=== PATIENT | female | born 1960 | race Caucasian/White ===

== ENCOUNTER 2018-03-05 16:01 | Inpatient (IN) | payer SELFPAY ==
[~2018-03-05] VITALS: Ht 167.6 cm; Wt 140.4 kg
[2018-03-05] MEDS ORDERED: SODIUM CHLORIDE 0.9% 1,000 ML IV ONE ×2 (16:05)
[2018-03-05] MEDS ORDERED: ACETAMINOPHEN 325 MG TAB PO ONE (16:45)
[2018-03-05 17:32] LABS: Basophils # (auto) 0 uL; Basophils % (auto) 0.4 % (0.0-2.0); Eosinophils # (auto) 0 uL; Eosinophils % (auto) 0.4 % (0.0-7.0); Hematocrit 28.1 % (36.0-46.0); Hemoglobin 9.5 g/dL (12.2-16.2); Lymphocytes # (auto) 1.3 uL; Mean Corpuscular Hemoglobin 32.8 pg (28.0-32.0); Mean Corpuscular Volume 96.7 fL (80.0-100.0); Monocytes # (auto) 0.9 uL; Monocytes % (auto) 10.3 % (0.0-12.0); Neutrophils # (auto) 6.2 uL; Neutrophils % (auto) 73.9 % (37.0-80.0); Platelet Count (auto) 165 10^3/uL (140-450); Red Cell Distribution Width 16.2 % (11.8-14.3); White Blood Cell 8.4 10^3/uL (4.4-10.8)
[2018-03-05] MEDS ORDERED: PIPERACILLIN-TAZOB 3.375GM 100 ML IV ONE (17:45)
[2018-03-05 17:49] LABS: Albumin 3.2 g/dL (3.4-5.0); Calcium 6.5 mg/dL (8.5-10.1); INR 1.06 (0.9-1.15); Partial Thromboplastin Time 25.2 sec (23.78-33.04); Potassium 4.9 mmol/L (3.5-5.1); Prothrombin Time 11.3 sec (9.27-12.13)
[2018-03-05 17:58] LABS: BUN/Creatinine Ratio 6.4; Bilirubin, Total 0.5 mg/dL (0.2-1.0); Total Protein 7.3 g/dL (6.4-8.2)
[2018-03-05 18:59] LABS: Urine Bacteria NONE SEEN /hpf (None Seen); Urine Blood 1+ /uL (Negative); Urine Budding Yeast MODERATE /hpf (None Seen); Urine WBC 97 /hpf (0 - 5); Urine WBC Clumps PRESENT /hpf (None Seen)
[2018-03-06] MEDS ORDERED: DEXTROSE (50%) 50ML SYRG IV PRN (00:30)
[2018-03-06] MEDS ORDERED: MORPHINE SULFATE 4 MG/ML SYR/VIAL IV PRN (00:30)
[2018-03-06] MEDS ORDERED: VANCOMYCIN PER PHARMACY 0 MG IV SCH (01:00)
[2018-03-06] MEDS ORDERED: VANCOMYCIN 1,500 MG in D5W 5% 250 ML IV ONE (01:30)
[2018-03-06 02:00] VITALS: BP 148/80
[2018-03-06] MEDS ORDERED: ASPI-231 PO (03:16)
[2018-03-06] MEDS ORDERED: ACET-1156 PO (03:16)
[2018-03-06] MEDS ORDERED: INSLANTI SC (03:16)
[2018-03-06] MEDS ORDERED: VANCOMYCIN 1GM/250ML 500 ML IV ONE (03:34)
[2018-03-06] MEDS: MORPHINE SULFATE 4 MG/ML SYR/VIAL IV PRN ×2 (03:52→10:23)
[2018-03-06] MEDS: ONDANSETRON HCL 4 MG/2 ML VIAL IV PRN ×2 (03:53→10:23)
[2018-03-06 05:00] VITALS: BP 109/62
[2018-03-06] MEDS: InsuLIN REG 1unit/0.01ml Soln (100units/ml) SC SCH ×4 (06:00→21:22)
[2018-03-06] MEDS: ACCU-CHEK COMFORT CURVE STRIP VI SCH ×4 (06:00→21:20)
[2018-03-06 08:00] VITALS: BP 134/77
[2018-03-06] MEDS ORDERED: cefTRIAXone 1GM/50ML D5W 50 ML IV SCH (09:00)
[2018-03-06 09:26] VITALS: BP 134/77
[2018-03-06] MEDS: DILTIAZEM HCL 180MG ER CAP PO SCH (10:22)
[2018-03-06] MEDS: GABAPENTIN 300 MG CAP PO SCH (10:22)
[2018-03-06] MEDS: CIPROFLOXACIN HCL 500 MG TAB PO SCH (11:48)
[2018-03-06] MEDS: metroNIDAZOLE 500 MG TAB PO SCH ×2 (14:40→21:19)
[2018-03-06 17:55] VITALS: BP 114/70
[2018-03-06] MEDS: ACETAMINOPHEN 500 MG TAB PO PRN (18:31)
[2018-03-06] MEDS: ATORVASTATIN 20 MG TAB PO SCH (21:18)
[2018-03-06] MEDS: LINEZOLID 600MG TABLET PO SCH (21:18)
[2018-03-06] MEDS: DOCUSATE SOD 100 MG CAP PO PRN (21:18)
[2018-03-06] MEDS: HYDROcodone-ACET 5/325MG TAB PO PRN (21:19)
[2018-03-06] MEDS: METHOCARBAMOL 500 MG TAB PO PRN (21:19)
[2018-03-06] MEDS: DAKINS HALF STR 0.25% (NaHypochlorite) 473 ML TOPICAL SOL TOP SCH (21:23)
[2018-03-06] MEDS: HEPARIN SODIUM (PORCINE) 5000 UNITS/ML 1ML VIAL SC SCH (21:23)
[2018-03-06 21:38] VITALS: BP 138/60
[2018-03-06] MEDS ORDERED: CIPROFLOXACIN HCL 500 MG TAB PO SCH (22:00)
[2018-03-07 05:30] VITALS: BP 129/78
[2018-03-07] MEDS: ACCU-CHEK COMFORT CURVE STRIP VI SCH ×4 (05:48→22:03)
[2018-03-07] MEDS: InsuLIN REG 1unit/0.01ml Soln (100units/ml) SC SCH ×4 (05:48→22:01)
[2018-03-07] MEDS: metroNIDAZOLE 500 MG TAB PO SCH ×3 (05:48→21:58)
[2018-03-07] MEDS: HEPARIN SODIUM (PORCINE) 5000 UNITS/ML 1ML VIAL SC SCH ×3 (06:01→22:00)
[2018-03-07] MEDS: HYDROcodone-ACET 5/325MG TAB PO PRN (07:50)
[2018-03-07] MEDS: MEPERIDINE HCL (50 MG/ML) 1 ML VIAL IV PRN ×4 (08:06→18:50)
[2018-03-07 09:00] VITALS: BP 106/94
[2018-03-07] MEDS ORDERED: HYDROcodone-ACET 10/325MG TAB PO ONE (09:00)
[2018-03-07] MEDS ORDERED: HYDROcodone-ACET 10/325MG TAB PO PRN (09:00)
[2018-03-07] MEDS ORDERED: MEPERIDINE HCL (50 MG/ML) 1 ML VIAL IM ONE (10:00)
[2018-03-07] MEDS: DILTIAZEM HCL 180MG ER CAP PO SCH (10:00)
[2018-03-07] MEDS: DAKINS HALF STR 0.25% (NaHypochlorite) 473 ML TOPICAL SOL TOP SCH ×2 (10:00→22:02)
[2018-03-07] MEDS: GABAPENTIN 300 MG CAP PO SCH (10:36)
[2018-03-07] MEDS: LINEZOLID 600MG TABLET PO SCH ×2 (10:36→22:12)
[2018-03-07] MEDS: CIPROFLOXACIN HCL 500 MG TAB PO SCH (10:36)
[2018-03-07 17:00] VITALS: BP 115/62
[2018-03-07] MEDS: METHOCARBAMOL 500 MG TAB PO PRN (17:48)
[2018-03-07] MEDS: ATORVASTATIN 20 MG TAB PO SCH (21:58)
[2018-03-07 22:00] VITALS: BP 120/58
[2018-03-07] MEDS: ACETAMINOPHEN 500 MG TAB PO PRN (22:35)
[2018-03-08 05:00] VITALS: BP 137/82
[2018-03-08] MEDS: HEPARIN SODIUM (PORCINE) 5000 UNITS/ML 1ML VIAL SC SCH ×3 (06:01→22:13)
[2018-03-08] MEDS: metroNIDAZOLE 500 MG TAB PO SCH ×3 (06:01→22:13)
[2018-03-08] MEDS: InsuLIN REG 1unit/0.01ml Soln (100units/ml) SC SCH ×4 (06:02→22:52)
[2018-03-08] MEDS: ACCU-CHEK COMFORT CURVE STRIP VI SCH ×4 (06:02→22:14)
[2018-03-08 06:20] LABS: Basophils # (auto) 0 uL; Basophils % (auto) 0.6 % (0.0-2.0); Eosinophils # (auto) 0 uL; Eosinophils % (auto) 0.6 % (0.0-7.0); Hematocrit 26.8 % (36.0-46.0); Hemoglobin 9.1 g/dL (12.2-16.2); Lymphocytes # (auto) 0.6 uL; Lymphocytes % (auto) 10.3 % (10.0-50.0); Mean Corpuscular Hemoglobin 32.8 pg (28.0-32.0); Mean Corpuscular Hgb Conc. 33.9 g/dL (32.0-36.0); Mean Corpuscular Volume 96.8 fL (80.0-100.0); Monocytes # (auto) 0.5 uL; Monocytes % (auto) 7.5 % (0.0-12.0); Neutrophils # (auto) 5.1 uL; Nucleated Red Blood Cells % 0.2 %; Platelet Count (auto) 245 10^3/uL (140-450); Red Blood Cells 2.77 10^6/uL (4.0-5.20); Red Cell Distribution Width 16.2 % (11.8-14.3); White Blood Cell 6.3 10^3/uL (4.4-10.8)
[2018-03-08] MEDS: DOCUSATE SOD 100 MG CAP PO PRN ×2 (06:31→16:21)
[2018-03-08 06:42] LABS: Calcium 6.7 mg/dL (8.5-10.1); Potassium 3.9 mmol/L (3.5-5.1)
[2018-03-08 06:47] LABS: BUN/Creatinine Ratio 5.1; Bilirubin, Total 0.6 mg/dL (0.2-1.0); Total Protein 7.5 g/dL (6.4-8.2)
[2018-03-08 09:00] VITALS: BP 113/71
[2018-03-08] MEDS: DILTIAZEM HCL 180MG ER CAP PO SCH (10:25)
[2018-03-08] MEDS: GABAPENTIN 300 MG CAP PO SCH (10:25)
[2018-03-08] MEDS: CIPROFLOXACIN HCL 500 MG TAB PO SCH (10:25)
[2018-03-08] MEDS: DAKINS HALF STR 0.25% (NaHypochlorite) 473 ML TOPICAL SOL TOP SCH ×2 (10:26→22:14)
[2018-03-08] MEDS: LINEZOLID 600MG TABLET PO SCH ×2 (10:26→22:13)
[2018-03-08] MEDS ORDERED: FUROSEMIDE 40 MG/4 ML VIAL IV ONE (11:30)
[2018-03-08 12:00] VITALS: BP 108/56
[2018-03-08] MEDS ORDERED: HEPARIN SODIUM (PORCINE) 5000 UNITS/ML 1ML VIAL ONE (14:40)
[2018-03-08 17:00] VITALS: BP 108/61
[2018-03-08] MEDS: FUROSEMIDE 40 MG/4 ML VIAL IV SCH (18:00)
[2018-03-08 21:00] VITALS: BP 98/60
[2018-03-08] MEDS: ATORVASTATIN 20 MG TAB PO SCH (22:13)
[2018-03-09 05:00] VITALS: BP 113/56
[2018-03-09] MEDS: HEPARIN SODIUM (PORCINE) 5000 UNITS/ML 1ML VIAL SC SCH ×2 (06:20→15:58)
[2018-03-09 06:26] LABS: Basophils # (auto) 0 uL; Eosinophils # (auto) 0.1 uL; Hemoglobin 8.4 g/dL (12.2-16.2); Mean Corpuscular Volume 96.4 fL (80.0-100.0); Monocytes # (auto) 0.8 uL; Neutrophils # (auto) 4.2 uL; Nucleated Red Blood Cells % 0.1 %
[2018-03-09 06:29] LABS: Basophils % (auto) 0.6 % (0.0-2.0); Eosinophils % (auto) 1.3 % (0.0-7.0); Hematocrit 24.9 % (36.0-46.0); Lymphocytes # (auto) 0.9 uL; Lymphocytes % (auto) 14.8 % (10.0-50.0); Mean Corpuscular Hemoglobin 32.6 pg (28.0-32.0); Mean Corpuscular Hgb Conc. 33.9 g/dL (32.0-36.0); Neutrophils % (auto) 70.3 % (37.0-80.0); Platelet Count (auto) 253 10^3/uL (140-450); Red Blood Cells 2.58 10^6/uL (4.0-5.20); Red Cell Distribution Width 16.2 % (11.8-14.3)
[2018-03-09] MEDS: FUROSEMIDE 40 MG/4 ML VIAL IV SCH ×2 (06:42→18:00)
[2018-03-09] MEDS: metroNIDAZOLE 500 MG TAB PO SCH (06:42)
[2018-03-09] MEDS: ACCU-CHEK COMFORT CURVE STRIP VI SCH ×3 (06:42→17:00)
[2018-03-09] MEDS: InsuLIN REG 1unit/0.01ml Soln (100units/ml) SC SCH ×3 (06:43→17:30)
[2018-03-09 06:50] LABS: BUN/Creatinine Ratio 5.1; Calcium 6.3 mg/dL (8.5-10.1)
[2018-03-09 09:00] VITALS: BP 128/67
[2018-03-09] MEDS: DAKINS HALF STR 0.25% (NaHypochlorite) 473 ML TOPICAL SOL TOP SCH (10:00)
[2018-03-09] MEDS: CIPROFLOXACIN HCL 500 MG TAB PO SCH (10:36)
[2018-03-09] MEDS: DILTIAZEM HCL 180MG ER CAP PO SCH (10:36)
[2018-03-09] MEDS: GABAPENTIN 300 MG CAP PO SCH (10:37)
[2018-03-09] MEDS: LINEZOLID 600MG TABLET PO SCH (10:37)
[2018-03-09 13:00] VITALS: BP 130/65
[2018-03-09] MEDS ORDERED: VANCOMYCIN PER PHARMACY 0 MG IV SCH ×2 (15:45)
[2018-03-09] MEDS ORDERED: VANCOMYCIN 1,250 MG in SODIUM CHL 0.9% 250 ML IV ONE (16:00)
[2018-03-09 16:58] VITALS: BP 101/47
[2018-03-09 19:21] VITALS: BP 101/47
[2018-03-09] MEDS ORDERED: CLINDAMYCIN HCL 150 MG CAP PO SCH ×2 (22:00)
== END 2018-03-09 21:30 | DRG 871 ==
LOC: ER 16:01 → TELE 03-06 00:20 → TELE-CENTR 03-06 02:00
PROVIDERS: ADMIT Nurse Practitioner Family; ATTEND Family Medicine
PROC: 5A1D70Z Performance of Urinary Filtration, Intermittent, Less than 6 Hours Per Day (ICD-10-PCS; principal; 2018-03-07)
DX: A41.9 Sepsis, unspecified organism (principal); G92 Toxic encephalopathy; I50.43 Acute on chronic combined systolic (congestive) and diastolic (congestive) heart failure; N18.6 End stage renal disease; E44.1 Mild protein-calorie malnutrition; Z68.43 Body mass index [BMI] 50.0-59.9, adult; I13.2 Hypertensive heart and chronic kidney disease with heart failure and with stage 5 chronic kidney disease, or end stage renal disease; L97.329 Non-pressure chronic ulcer of left ankle with unspecified severity; N30.00 Acute cystitis without hematuria; D64.9 Anemia, unspecified; E11.21 Type 2 diabetes mellitus with diabetic nephropathy; E11.22 Type 2 diabetes mellitus with diabetic chronic kidney disease; E11.621 Type 2 diabetes mellitus with foot ulcer; E11.622 Type 2 diabetes mellitus with other skin ulcer; E78.5 Hyperlipidemia, unspecified; L89.620 Pressure ulcer of left heel, unstageable; E66.01 Morbid (severe) obesity due to excess calories; M54.9 Dorsalgia, unspecified; L97.529 Non-pressure chronic ulcer of other part of left foot with unspecified severity; Z88.2 Allergy status to sulfonamides; Z99.2 Dependence on renal dialysis
CPT/HCPCS: 36415; 70450; 71045; 73700; 80048; 80053; 80202; 81001; 82962; 83605; 83880; 84484; 85025; 85610; 85730; 87040; 87081; 87086; 87205; 90935; 93306; 96365; 96367; A6257; G0378; J0696; J1815; J2405; J2543; J7060

== ENCOUNTER 2018-05-13 13:07 | Emergency (ER) | payer OTHER ==
[~2018-05-13] VITALS: Ht 167.6 cm; Wt 54.4 kg
[~2018-05-13 13:07] MED LIST: ACET-1156 PO; ASPI-231 PO; INSLANTI SC
[2018-05-13] MEDS ORDERED: ASPirin 81 mg TAB PO ONE (15:00)
[2018-05-13 15:34] LABS: Basophils # (auto) 0.1 uL; Basophils % (auto) 1.9 % (0.0-2.0); Eosinophils # (auto) 0.1 uL; Eosinophils % (auto) 3.2 % (0.0-7.0); Hematocrit 30.7 % (36.0-46.0); Hemoglobin 10.2 g/dL (12.2-16.2); Lymphocytes % (auto) 21.1 % (10.0-50.0); Mean Corpuscular Hgb Conc. 33.3 g/dL (32.0-36.0); Mean Corpuscular Volume 92.9 fL (80.0-100.0); Monocytes # (auto) 0.3 uL; Monocytes % (auto) 7.1 % (0.0-12.0); Neutrophils % (auto) 66.7 % (37.0-80.0); Platelet Count (auto) 218 10^3/uL (140-450); Red Cell Distribution Width 13.6 % (11.8-14.3); White Blood Cell 4.5 10^3/uL (4.4-10.8)
[2018-05-13 15:49] LABS: INR 0.99 (0.9-1.15); Partial Thromboplastin Time 24.5 sec (23.78-33.04); Prothrombin Time 10.6 sec (9.27-12.13)
[2018-05-13 16:11] LABS: Anion Gap 7 (5-15); Blood Urea Nitrogen 35 mg/dL (7-18); Carbon Dioxide 26 mmol/L (21-32); Chloride 108 mmol/L (98-107); Glucose 134 mg/dL (74-106); Potassium 4.8 mmol/L (3.5-5.1); Sodium 141 mmol/L (136-145)
[2018-05-13 16:17] LABS: Alanine Aminotransferase 13 U/L (13-56); Alkaline Phosphatase 114 U/L (45-117); Aspartate Aminotransferase 10 U/L (15-37); BUN/Creatinine Ratio 6.7; Bilirubin, Total 0.6 mg/dL (0.2-1.0); GFR African American 11 mL/min; GFR Non-African American 9 mL/min; Total Protein 7.7 g/dL (6.4-8.2)
[2018-05-13 18:12] VITALS: BP 154/107
== END 2018-05-13 19:18 | disposition home or self-care (01) ==
LOC: EDBD 13:07 → ER 13:21
DX: R07.89 Other chest pain (principal); I13.2 Hypertensive heart and chronic kidney disease with heart failure and with stage 5 chronic kidney disease, or end stage renal disease; E11.22 Type 2 diabetes mellitus with diabetic chronic kidney disease; N18.6 End stage renal disease; I50.9 Heart failure, unspecified; Z88.2 Allergy status to sulfonamides
CPT/HCPCS: 36415; 70450; 71045; 80053; 83880; 84484; 85025; 85610; 85730; 93005